=== PATIENT | female | born 2000 | race Caucasian/White ===

== ENCOUNTER 2025-03-11 10:58 | Oncology outpatient (recurring) (ONCR) | payer OTHER, SELFPAY ==
[2025-02-21 09:18] VITALS: BP 115/74; PULSE 95; RESP 17; TEMP 36.6; O2SAT 100
[2025-02-21] MEDS: iron sucrose 200 MG in sodium chloride 0.9% (100 ml) 100 ML IV (09:31)
[2025-02-21 11:41] VITALS: BP 115/74; PULSE 94; RESP 16; TEMP 36.7; O2SAT 99
[2025-02-24] MEDS: iron sucrose 200 MG in sodium chloride 0.9% (100 ml) 100 ML IV (15:30)
[2025-02-24 16:00] VITALS: BP 109/67; PULSE 99; RESP 17; TEMP 36.9; O2SAT 100
[2025-02-26] MEDS: iron sucrose 200 MG in sodium chloride 0.9% (100 ml) 100 ML IV (15:27)
[2025-02-26 16:11] VITALS: BP 105/66; PULSE 109; RESP 16; TEMP 36.8; O2SAT 98
[2025-03-06] MEDS: iron sucrose 200 MG in sodium chloride 0.9% (100 ml) 100 ML 220 MG IV (09:08)
[2025-03-06 09:21] VITALS: BP 108/71; PULSE 99; RESP 17; TEMP 36.5; O2SAT 98
[2025-03-06 10:51] VITALS: BP 112/74; PULSE 101; RESP 16; TEMP 36.8; O2SAT 96
[2025-03-11] MEDS: iron sucrose 200 MG in sodium chloride 0.9% (100 ml) 100 ML 220 MG IV (11:41)
[2025-03-11 12:24] VITALS: BP 109/64; PULSE 74; RESP 16; TEMP 36.1; O2SAT 99
== END 2025-03-15 23:59 | disposition home or self-care (01) ==
PROVIDERS: Visit Provider Advanced Practice Midwife
DX: D50.9 Iron deficiency anemia, unspecified (principal); Z79.899 Other long term (current) drug therapy
CPT/HCPCS: 96365; J1756

== ENCOUNTER 2025-06-16 17:23 | Outpatient (CLI) | payer OTHER, SELFPAY ==
--- NOTE | 2025-06-16 17:30 | XRR_ITS ---
PROCEDURE INFORMATION: Exam: XR Lumbosacral Spine Exam date and time: 06/16/2025 5:48 PM Age: 24 years old Clinical indication: Low back pain TECHNIQUE: Imaging protocol: Radiologic exam of the lumbosacral spine. Views: 2 or 3 views. COMPARISON: No relevant prior studies available. FINDINGS: Bones/joints: Limbus vertebrae of superior endplate of L4. Mild degenerative changes with multilevel endplate spurring. Soft tissues: See Bones/joints finding. Gastrointestinal tract: Bowel gas pattern grossly unremarkable. XR/XR lumbar spine 2-3V* [id number] IMPRESSION: No acute fracture. Mild degenerative changes as described above.
== END 2025-06-16 17:24 | disposition home or self-care (01) ==
LOC: RAD 17:28
PROVIDERS: Visit Provider Registered Nurse Neonatal Intensive Care
DX: M47.896 Other spondylosis, lumbar region (principal); R93.7 Abnormal findings on diagnostic imaging of other parts of musculoskeletal system; M46.06 Spinal enthesopathy, lumbar region
CPT/HCPCS: 72100